=== PATIENT | female | born 1980 | race Asian ===

== ENCOUNTER 2018-06-08 11:12 | Emergency (ER) | payer SELFPAY ==
[~2018-06-08] VITALS: Ht 160 cm; Wt 47.6 kg
[2018-06-08 11:27] VITALS: BP 111/86
== END 2018-06-08 12:51 | disposition home or self-care (01) ==
LOC: ER 11:18
DX: N63.42 Unspecified lump in left breast, subareolar (principal); F17.290 Nicotine dependence, other tobacco product, uncomplicated; Z88.0 Allergy status to penicillin
CPT/HCPCS: 76642